=== PATIENT | female | born 1990 | race Caucasian/White ===

== ENCOUNTER 2018-02-09 12:34 | Outpatient (CLI) | payer OTHER ==
[~2018-02-09 12:34] MED LIST: CAT.1 PO; DICY20TA55 PO; GABA-531 PO; HUMALOG S S; HYDR-2472 PO; IBUP-1969 PO; INSU300I SQ; LOPE2CAP PO; METH500T PO; PROM25TA15 PO; SERT100T PO; TRAZ150T77 PO
== END 2018-02-09 20:22 | disposition home or self-care (01) ==
LOC: SLB 12:34
PROVIDERS: ATTEND Specialist
DX: M25.562 Pain in left knee (principal); M79.89 Other specified soft tissue disorders; E10.8 Type 1 diabetes mellitus with unspecified complications; F41.8 Other specified anxiety disorders; N91.1 Secondary amenorrhea
CPT/HCPCS: 73564